=== PATIENT | male | born 1945 | race Caucasian/White ===

== ENCOUNTER 2018-07-31 20:27 | Observation (INO) ==
[2018-07-31 21:12] LABS: Basophils # 0.1 K/mcL (0.0-0.2); Basophils % 1.1 %; Eosinophils # 0.2 K/mcL (0.0-0.6); Eosinophils % 2.9 %; Hematocrit 43.2 % (37.5-50.1); Hemoglobin 14.7 g/dL (12.9-16.9); Immature Granulocytes % 0.3 % (0-4); Lymphocytes # 1.7 K/mcL (0.6-4.6); Lymphocytes % 26.9 %; Mean Corpuscular Hemoglobin 29.5 pg (28.0-33.3); Mean Corpuscular Volume 86.6 fL (83.0-100.0); Mean Platelet Volume 10.3 fL (9.4-12.4); Monocytes # 0.5 K/mcL (0.0-1.3); Monocytes % 7.7 %; Platelet Count 234 K/mcL (140-400); Red Blood Count 4.99 M/mcL (4.19-5.50); Red Cell Distribution Width 13.8 % (11.5-14.5); Segmented Neutrophils % 61.1 %
[2018-07-31 21:34] LABS: BUN/Creatinine Ratio 11 (6-26); Blood Urea Nitrogen 24 mg/dL (8-23); Calcium 9.4 mg/dL (8.6-10.3); Carbon Dioxide 25 mEq/L (23-29); Chloride 102 mEq/L (98-107); Glucose 102 mg/dL (70-105); Osmolality,Calculated 288 (280-300); Potassium 4.1 mEq/L (3.5-5.1); Sodium 137 mEq/L (136-145); eGFR For Non-African Americans 29 (> 60)
[2018-07-31 21:35] LABS: Troponin I < 0.03 ng/mL (< 0.04)
[2018-07-31 21:48] LABS: Thyroid Stimulating Hormone 2.745 mcIU/mL (0.340-5.600)
--- NOTE | 2018-07-31 22:11 | Emergency Department Note ---
Disposition Clinical Impression: Bradycardia Syncope Qualifiers: Syncope type: unspecified Qualified Code(s): R55 - Syncope and collapse Chronic kidney disease Qualifiers: Chronic kidney disease stage: unspecified stage Qualified Code(s): N18.9 - Chronic kidney disease, unspecified Disposition: Admitted As Inpatient Condition: Fair Time of Disposition: 22:15 General Adult HPI - General Chief complaint: ED Neuro Symptoms/Deficit Stated complaint: Possible TIA Time Seen by Provider: 07/31/18 20:29 Source: patient, EMS Mode of arrival: EMS Limitations: no limitations Nursing Notes Reviewed: Yes Vital Signs Reviewed: Yes - History of Present Illness HPI Narrative: 73-year-old male with significant past medical history of previous cancer requiring a nephrectomy presenting to the emergency department with a syncopal episode. According to at bedside they were at dinner this evening when he became unresponsive and limp. He vomited on himself. Patient woke up and had time of confusion [place] 5-10 minutes. They called EMS and he is brought here for further evaluation. Patient had no focal neurological deficits during this time. When EMS arrived his NIH was 0. Patient does have a history of stroke in the past but denies any anticoagulation at this time. Patient states is similar episode occurred earlier this week when he was at physical therapy. He felt his heart rate go very slow and became diaphoretic and sweaty and almost passed out. He was seen at urgent care at that time repeat EKG was completed and was discharged home. He was previously a candidate for pacemaker but denied it because he was going through cancer treatment and did not want any intervention. At this time patient is completely asymptomatic. Denies any chest pain, dizziness, headache or shortness of breath. Pain Scale: 0 - Related Data Home Medications Medication Instructions Recorded Confirmed Aspirin [Lo-Dose Aspirin EC] 81 mg PO DAILY 07/22/18 07/31/18 Atorvastatin [Lipitor] 40 mg PO DAILY 07/22/18 07/31/18 Doxazosin [Cardura] 4 mg PO DAILY 07/22/18 07/31/18 amLODIPine [Norvasc] 10 mg PO DAILY 07/22/18 07/31/18 hydroCHLOROthiazide 12.5 mg PO DAILY 07/22/18 07/31/18 [Hydrochlorothiazide] Allergies Allergy/AdvReac Type Severity Reaction Status Date / Time No Known Allergies Allergy Verified 07/22/18 10:00 All systems ED: reviewed and negative except as stated. Constitutional: Denies: fever Eyes: Reports: as per HPI ENT ED: Reports: as per HPI Cardiovascular: Denies: chest pain Respiratory: Denies: dyspnea Gastrointestinal: Reports: vomiting. Denies: abdominal pain Genitourinary: Reports: as per HPI Musculoskeletal: Reports: as per HPI Integumentary: Reports: as per HPI Neurological: Reports: other (Syncope) Psychiatric: Reports: as per HPI Endocrine: Reports: as per HPI Hematological/Lymphatic: Reports: as per HPI Allergic/Immunologic: Reports: as per HPI Past Medical History - Past Medical History Attestation: Yes The following information was validated with the patient. Medical history: Reports: cancer, CVA, hypertension, other Psychiatric history: Reports: no psych history - Social History Smoking Status: Never smoker Smokeless Tobacco Status: No Alcohol use: Reports: none Drug use: Reports: none Physical Exam - General Limitations: no limitations General appearance: alert, in no apparent distress - Head Head exam: atraumatic, normocephalic, normal inspection - Eye Eye exam: Present: EOMI. Absent: scleral icterus, conjunctival injection - ENT ENT exam: mucous membranes moist - Neck Neck exam: Present: full ROM - Chest Chest inspection: Present: symmetric chest wall rise - Respiratory Respiratory exam: Present: normal lung sounds bilaterally. Absent: respiratory distress, wheezes - Cardiovascular Cardiovascular exam: Present: normal rhythm, bradycardia, normal heart sounds - Abdominal Exam Abdominal exam: Present: soft, Non-Tender. Absent: distention, guarding, rebound - Extremities Exam Extremities exam: Present: full ROM - Neurological Exam Neurological exam: Present: alert, oriented X3 - Skin Skin exam: Present: warm, dry Course Course Narrative: 73-year-old male presenting for a syncopal episode. Patient was sitting when it occurred. Concern for possible bradycardia leading to syncope. In the room he is alert and oriented 3 and hemodynamically stable. Asymptomatic at this time. Concern for bradycardia leading to syncope or possible other arrhythmia especially due to patient having symptoms earlier this week. At this time will obtain basic laboratory analysis along with an EKG and chest x-ray. Disposition most likely admission due to patient's repeat symptoms. Patient agrees with this plan. - Reevaluation(s) Reevaluation #1: Patient's laboratory analysis shows mild worsening creatinine. Otherwise benign. EKG does not show any acute process. At this time will plan to admit the patient for further evaluation and cardiac monitoring. He remains alert and oriented 3 and hemodynamically stable. Patient agrees this plan. I spoke with the hospitalist on-call who agrees to accept the patient at this time. Vital Signs Temperature 97.6 F 07/31/18 20:34 Pulse Rate 53 07/31/18 20:34 Respiratory Rate 15 07/31/18 20:34 Blood Pressure 133/87 07/31/18 20:34 O2 Sat by Pulse Oximetry 97 07/31/18 20:34 Temperature 97.6 F 07/31/18 20:34 Pulse Rate 53 07/31/18 20:34 Respiratory Rate 15 07/31/18 20:34 Blood Pressure 133/87 07/31/18 20:34 O2 Sat by Pulse Oximetry 97 07/31/18 20:34 Oxygen Delivery Oxygen Delivery Room Air Medical Decision Making - Lab Data Result diagrams: 07/31/18 20:54 07/31/18 20:54 Lab Results 07/31/18 07/31/18 Range/Units 20:54 20:54 WBC 6.5 (4.3-11.1) K/mcL RBC 4.99 (4.19-5.50) M/mcL Hgb 14.7 (12.9-16.9) g/dL Hct 43.2 (37.5-50.1) % MCV 86.6 (83.0-100.0) fL MCH 29.5 (28.0-33.3) pg MCHC 34.0 (31.6-35.5) g/dL RDW 13.8 (11.5-14.5) % Plt Count 234 (140-400) K/mcL MPV 10.3 (9.4-12.4) fL Immature Gran % 0.3 (0-4) % Seg Neutrophils % 61.1 % Lymphocytes % 26.9 % Monocytes % 7.7 % Eosinophils % 2.9 % Basophils % 1.1 % Neutrophils # 4.0 (1.6-8.9) K/mcL Lymphocytes # 1.7 (0.6-4.6) K/mcL Monocytes # 0.5 (0.0-1.3) K/mcL Eosinophils # 0.2 (0.0-0.6) K/mcL Basophils # 0.1 (0.0-0.2) K/mcL Sodium 137 (136-145) mEq/L Potassium 4.1 (3.5-5.1) mEq/L Chloride 102 (98-107) mEq/L Carbon Dioxide 25 (23-29) mEq/L BUN 24 H (8-23) mg/dL Creatinine 2.22 H (0.70-1.30) mg/dL Est GFR ( Amer) 36 L (> 60) Est GFR (Non-Af Amer) 29 L (> 60) BUN/Creatinine Ratio 11 (6-26) Glucose 102 (70-105) mg/dL Calculated Osmolality 288 (280-300) Calcium 9.4 (8.6-10.3) mg/dL Troponin I < 0.03 (< 0.04) ng/mL TSH 2.745 (0.340-5.600) mcIU/mL - EKG Data EKG #1 EKG attestation: Yes I reviewed and interpreted this EKG. EKG results narrative: Sinus rhythm. 50 beats for minute. OK interval 167, QRS 102, QTC 385. Left axis deviation. No sign of acute ST segment elevation or ischemia. Compared to previous EKG completed on 07/22/2018 no significant changes noted Attestation Statement - Attestation Attestation: I, Barney Smith, examined this patient and my medical decision-making was reviewed with the [employer] SALESPERSON/PA/Advanced Practice Nurse/Resident Physician. I agree with the documented findings, disposition and treatment plan as described except to the extent set forth below. 73-year-old male presents emergency Department after having episode of decreased responsiveness. Patient was sitting at a restaurant talking with friends, had not yet eaten dinner when he suddenly started to stare off into space, became pale and diaphoretic and had drooping of the right side of his face. Patient has a history of previous CVA. No history of seizures. He should not had a postictal period per the family was present in the room during the interview. He was not incontinent of urine or stool. Did not bite his tongue. There is no observed convulsions. Patient did not fall to the ground or become completely unconscious. Patient states that this is occurred to him in the past. Patient is bradycardic during the evaluation. He has been evaluated for possible pacemaker in the past has refused it. His possible patient's symptoms may have been secondary to a [place] bradycardia could have been due to vasovagal syndrome, and also could have been due to seizure given his recent CVA. Patient denies headache, recent trauma. He had a head CT within the past 2 months that did not show evidence of obvious mass. Unlikely subarachnoid hemorrhage without having headache or focal neurologic deficits in emergency department. Patient will be admitted to the hospital for further care and evaluation.
[2018-08-01] MEDS ORDERED: 0.9 % Sodium Chloride 500 ML IVC SCH (01:30)
[2018-08-01] MEDS ORDERED: Naloxone 0.4 MG/ML INJ IVP PRN (01:31)
--- NOTE | 2018-08-01 01:49 | Internal Med History&Physical ---
<Dave Serrano R - Last Filed: 08/01/18 04:14> Date of Encounter: 08/01/18 Time of Encounter: 02:04 Internal Medicine - H&P: HPI Chief complaint: Syncope Admitted From: Emergency Dept Plans for Post Hospital Care: Home History of present illness: Mr. Johnson is a 73 year old male with a history of CK D, bladder cancer in remission, bradycardia, and recent CVA in 05/2018 with some mild residual right-sided weakness. Patient presenting for evaluation of recurrent episodes of presyncope and syncope. Most recently occurred yesterday evening while seated down for dinner. Prior to eating patient states that he felt presyncopal with symptoms including diaphoresis, dizziness, nausea. He has poor memory of what happened after that. He does state he did not bite his tongue and he did not lose urinary or bowel continence. He is unsure if he completely lost consciousness, however states he did not follow for the remaining seated. He believes that this episode lasted just a couple minutes. He reports that this has happened last week while working with physical therapy, where he became diaphoretic, dizzy, nauseous. He admits to a history of bradycardia which was evaluated in approximately 2009. He electively decided not to have a pacemaker implanted. Evaluation in the emergency department revealed vital signs within normal limits, CBC within normal limits, elevated serum creatinine of 2.2, appears his baseline is somewhere between 2.0 2.1. Chest x-ray negative for acute abnormality. And no new focal neurologic deficits were identified At the time of my evaluation patient is resting comfortably in his room. No family is present, patient can provide only a limited account of history of present illness. He has no other acute complaints at this time. Past Med Surg Social Fam HX - Past Medical History Medical history: cancer, CVA, hypertension, other Additional medical history: RENAL CA-NEPHRECTOMY Psychiatric history: no psych history - Social History Smoking Status: Never smoker Smokeless Tobacco Status: No Alcohol use: none Drug use: none - Family History Mother Living Status: Age at : 84 Hx Family Cardiac Disorders: Yes (CHF) Father Living Status: Age at : 92 Hx Family Respiratory Disorders: Yes (black lung) Hx Family Cancer: Yes (bone) Internal Medicine - H&P: Meds Aspirin [Lo-Dose Aspirin EC] 81 mg PO DAILY 07/22/18 [History] Atorvastatin [Lipitor] 40 mg PO DAILY 07/22/18 [History] Doxazosin [Cardura] 4 mg PO DAILY 07/22/18 [History] amLODIPine [Norvasc] 10 mg PO DAILY 07/22/18 [History] hydroCHLOROthiazide [Hydrochlorothiazide] 12.5 mg PO DAILY 07/22/18 [History] Allergy/AdvReac Type Severity Reaction Status Date / Time No Known Allergies Allergy Verified 07/22/18 10:00 All Systems PM: A 10-system review of systems was performed and is negative for pertinent findings except as documented above in the HPI. - Constitutional Constitutional: no chills, no fever(s) - EENT Eyes: no blurry vision, no diplopia Nose, mouth and throat: no dysphagia, no epistaxis, no mouth pain, no neck pain - Cardiovascular Cardiovascular ROS IM: diaphoresis, lightheadedness, syncope, no chest pain, no dyspnea on exertion, no edema, no palpitations - Respiratory Respiratory: no cough, no wheezing, no chest congestion - Gastrointestinal Gastrointestinal: no abdominal pain, no change in bowel habits, no dysphagia, no hematemesis, no hematochezia, no melena, no nausea, no vomiting - Genitourinary Genitourinary ROS male: no dysuria, no flank pain, no hematuria - Musculoskeletal Musculoskeletal ROS IM: muscle weakness, no arthralgias, no numbness, no tingling - Integumentary Integumentary IM: no erythema, no rash - Neurological Neurological ROS: abnormal movements, dizziness, weakness, no confusion, no convulsions, no numbness, no tingling - Psychiatric Psychiatric: no anxiety, no confusion, no depression - Hematologic/Lymphatic Hematologic/Lymphatic: no easy bleeding, no easy bruising - Constitutional Vitals: Temp Pulse Resp BP Pulse Ox 97.6 F 55 18 148/82 96 08/01/18 00:26 08/01/18 00:26 08/01/18 00:26 08/01/18 00:26 08/01/18 00:26 Exam: General: Patient is resting quietly in his room, easily arousable, no apparent distress HEENT: Atraumatic, pupils PERRLA with EOMI, moist mucous membranes, anicteric sclera Neck: Soft, full range of motion Cardiovascular: Bradycardic in the mid 50s, regular rate and rhythm, no murmurs to auscultation Respiratory: Clear to auscultation bilateral lung [place], no crackles, wheezing, or rhonchi noted Abdomen: Soft, nontender, nondistended, no guarding or rigidity Extremities: Warm and dry, no swelling or edema Neuro: Alert and oriented to person, place, and situation. Good fund of knowledge. Language is fluent without significant word finding or dysphagia. Very subtle right upper extremity weakness compared to left, and 4/5 strength of the right lower extremity compared to 5/5 of the left lower extremity, residual from prior CVA. No difficulty with rapid alternating movement. However patient does demonstrate difficulty with right-sided finger to nose testing. Patient does require walker for ambulation, gait was not witnessed during this evaluation. Psych: Conversant and pleasant, appropriate mood and affect Internal Med - H&P Results - Labs CBC & Chem 7: 07/31/18 20:54 07/31/18 20:54 Labs: Short CBC 07/31/18 Range/Units 20:54 WBC 6.5 (4.3-11.1) K/mcL Hgb 14.7 (12.9-16.9) g/dL Hct 43.2 (37.5-50.1) % Plt Count 234 (140-400) K/mcL Neutrophils # 4.0 (1.6-8.9) K/mcL BMP 07/31/18 20:54 Sodium 137 Potassium 4.1 Chloride 102 Carbon Dioxide 25 BUN 24 H Creatinine 2.22 H Glucose 102 Calcium 9.4 Cardiac Enzymes 07/31/18 Range/Units 20:54 Troponin I < 0.03 (< 0.04) ng/mL - Impressions ITS Impressions Chest X-Ray 07/31/18 20:43 IMPRESSION: No acute finding in the chest. D/ / Narciso Whitfield MD / Narciso Whitfield MD Interpreting Provider: Narciso Whitfield MD - Assessment and plan (1) Syncope Current Visit: Yes Status: Acute Assessment and plan: Witnessed syncope and presyncopal events Etiology bradycardia versus orthostatic hypotension versus neurologic History of bradycardia, and was offered pacemaker in the past however patient declined History of CVA in 05/2018, current episodes do not appear neurologic in origin It appears the patient's dose of doxazosin was recently increased from 2 mg to 4 mg daily, and it appears that this medication was filled on 07/21/2018 which would be consistent with symptom onset. Plan: Will admit for observation with cardiac monitoring We will obtain ultrasound evaluation of carotids as well as echocardiogram Cardiology consultation for re-evaluation of bradycardia We will hold home blood pressure medications for the time being as well as doxazosin Low suspicion for neurologic etiology, however pending patient clinical course consider neurologic evaluation with brain MRI. Qualifiers: Syncope type: unspecified Qualified Code(s): R55 - Syncope and collapse (2) Bradycardia Current Visit: Yes Status: Acute Assessment and plan: History of bradycardia, and was offered pacemaker implantation in the past, however patient previously refused Patient has been bradycardic this admission with heart rate in the mid 50s. Plan: Admit for cardiac observation Continue plan as outlined above Cardiology consultation for reevaluation of bradycardia (3) Chronic kidney disease Current Visit: Yes Status: Acute Assessment and plan: Chronic kidney disease Mild increase in serum creatinine from prior Avoid nephrotoxic agents as possible We will give conservative maintenance rate fluids tonight Qualifiers: Chronic kidney disease stage: unspecified stage Qualified Code(s): N18.9 - Chronic kidney disease, unspecified (4) Bladder cancer Current Visit: No Status: Acute Assessment and plan: History of metastatic bladder cancer per patient was treated with chemotherapy/radiation in approximately 2009 Patient states that he has been cancer free in remission since that time. Patient did receive neuroimaging in May 2018 as part of stroke workup. Per patient these evaluations did not reveal recurrent metastatic disease. Continue routine follow-up with outpatient oncology as indicated Qualifiers: Bladder location: unspecified site Qualified Code(s): C67.9 - Malignant neoplasm of bladder, unspecified - Time Spent With Patient Total time spent is greater than 50% in coordination of care (as documented) at patient's floor/unit and/or counseling patient: <OliviageriBea Vargas - Last Filed: 08/01/18 07:30> Date of Encounter: 08/01/18 Internal Medicine - H&P: HPI History of present illness: Mr. Johnson is a 73 year old male All Systems PM: A 10-system review of systems was performed and is negative for pertinent findings except as documented above in the HPI. - Constitutional Vitals: Temp Pulse Resp BP Pulse Ox 97.8 F 52 14 138/74 95 08/01/18 06:59 08/01/18 06:59 08/01/18 06:59 08/01/18 06:59 08/01/18 06:59 Internal Med - H&P Results - Labs CBC & Chem 7: 07/31/18 20:54 07/31/18 20:54 Labs: Short CBC 07/31/18 Range/Units 20:54 WBC 6.5 (4.3-11.1) K/mcL Hgb 14.7 (12.9-16.9) g/dL Hct 43.2 (37.5-50.1) % Plt Count 234 (140-400) K/mcL Neutrophils # 4.0 (1.6-8.9) K/mcL BMP 07/31/18 20:54 Sodium 137 Potassium 4.1 Chloride 102 Carbon Dioxide 25 BUN 24 H Creatinine 2.22 H Glucose 102 Calcium 9.4 Cardiac Enzymes 07/31/18 Range/Units 20:54 Troponin I < 0.03 (< 0.04) ng/mL Urine 08/01/18 Range/Units 05:20 Urine Color Yellow (Yellow) Urine Clarity Clear (Clear) Urine pH 7.5 (5.0-8.0) pH Units Ur Specific [place] < 1.005 L (1.010-1.025) Urine Protein Negative (Neg-Trace) mg/dL Urine Glucose (UA) Normal (Normal) mg/dL - Impressions ITS Impressions Chest X-Ray 07/31/18 20:43 IMPRESSION: No acute finding in the chest. D/ / Narciso Whitfield MD / Narciso Whitfield MD Interpreting Provider: Narciso Whitfield MD - Assessment and plan (1) Bladder cancer Current Visit: No Status: Acute Qualifiers: Bladder location: unspecified site Qualified Code(s): C67.9 - Malignant neoplasm of bladder, unspecified (2) Syncope Current Visit: Yes Status: Acute Qualifiers: Syncope type: unspecified Qualified Code(s): R55 - Syncope and collapse (3) Bradycardia Current Visit: Yes Status: Acute (4) Chronic kidney disease Current Visit: Yes Status: Acute Qualifiers: Chronic kidney disease stage: unspecified stage Qualified Code(s): N18.9 - Chronic kidney disease, unspecified - Time Spent With Patient Total time spent is greater than 50% in coordination of care (as documented) at patient's floor/unit and/or counseling patient: - Attending Attestation I performed a history and physical examination of the patient and discussed his management with the resident. I reviewed the resident's note and agree with the assessment and plan of care. Patient is a 73-year-old male with a past medical history of bladder cancer in remission, bradycardia and CVA in May 2018 with mild right-sided residual weakness who presented to the ED after a syncopal episode witnessed by his family members while patient was seated at dinner. Symptoms were preceded by flushing, warmth and nausea. Patient unsure if he lost consciousness or not. No reports of tonic-clonic activity, tongue biting or loss of bowel or bladder control. No evidence of focal neurological deficits or change from patient's baseline. Patient has had these episodes of recurrent syncope in the past, the previous one occurring during physical rehabilitation in June with similar presentation and return to baseline. Patient also reports a syncopal episode as a teenager. Patient was evaluated for possible pacemaker placement many years ago while he was undergoing chemotherapy, but opted to hold off at the time. Low suspicion for TIA. On arrival patient was found to be in sinus bradycardia in the 40s to 50s. Troponin negative. Of note, Patient does report an increase in his doxazosin from 2-4 mg. We will continue patient on telemetry. Hold AV jessica blocking agents. Hold doxazosin for now. Obtain echocardiogram and cardiology consult appreciated.
[2018-08-01 05:31] LABS: Bilirubin,Urine Negative (Negative); Blood,Urine Negative (Negative); Clarity,Urine Clear (Clear); Color,Urine Yellow (Yellow); Glucose,Urine (UA) Normal (Normal); Ketones,Urine Negative (Negative); Leukocyte Esterase,Urine Negative (Negative); Nitrite,Urine Negative (Negative); PH,Urine 7.5 pH Units (5.0-8.0); Protein,Urine Negative (Neg-Trace); Specific Gravity,Urine < 1.005 (1.010-1.025); Urobilinogen,Urine Normal (Normal)
[2018-08-01 07:38] LABS: Estimated Average Glucose 111 mg/dl; Hemoglobin A1C 5.5 %
[2018-08-01 07:42] LABS: Albumin 3.9 g/dL (3.5-5.7); Albumin/Globulin Ratio 1.8 (1.1-2.2); Bilirubin,Total 1.5 mg/dL (0.3-1.0); Calcium 9.1 mg/dL (8.6-10.3); Globulin 2.2 g/dL (2.4-3.5); Total Protein 6.1 g/dL (6.4-8.9)
[2018-08-01] MEDS: Aspirin Enteric Coated 81 MG Tablet PO SCH (09:07)
--- NOTE | 2018-08-01 12:45 | Cardiology Consult Note ---
Date of Encounter: 08/01/18 Time of Encounter: 11:45 Assessment and Plan (1) Syncope Current Visit: Yes Status: Acute Per cardiology: -Admitted with syncopal event at home. -Denies loss of bowel or bladder. -No recent cardiac work up. -TTE/Carotid pending. -ECG with SB, HR 50. -Average HR previous 12 hours 54. No significant pauses, events noted on tele. -Denies current symptoms. -Agree with TTE. -Continue telemetry. -Will continue to monitor. Qualifiers: Syncope type: unspecified Qualified Code(s): R55 - Syncope and collapse (2) Bradycardia Current Visit: Yes Status: Chronic Per cardiology: -Known bradycardia. -Avoid AV jessica blockers. -Continue tele -Will continue to monitor. Discussion w patient/family: The assessment and plan as outlined above was discussed with the patient who expressed understanding and agreement. All questions were answered. Thank you for involving us in the care of your patient. Please call with any questions. Discussed and reviewed with . History of Present Illness Consult date: 08/01/18 Requesting physician: Dave Serrano Consult reason: syncope Chief complaint: syncope History of present illness: Mr. Johnson is a 73 year old male with a relevant past medical history of HTN, bradycardia, syncope, bladder cancer, CVA, who presented to [facility] with complaints of syncope. Patient states he was eating at the kitchen table when he felt dizzy, warm all over, and felt like his vision was getting dark. Patient states that is when he lost consciousness. Denies loss of bowel or bladder. Reports had similar episodes in 2009. Denies current symptoms. Past Med Surg Social Fam HX - Past Medical History Attestation: Yes The following information was validated with the patient. Source: patient, old records reviewed Medical history: cancer, CVA, hypertension, other Additional medical history: RENAL CA-NEPHRECTOMY Psychiatric history: no psych history - Past Surgical History Surgical History: other Additional surgical history: nephrectomy - Social History Smoking Status: Never smoker Smokeless Tobacco Status: No Alcohol use: none Drug use: none - Family History Mother Living Status: Age at : 84 Hx Family Cardiac Disorders: Yes (CHF) Father Living Status: Age at : 92 Hx Family Respiratory Disorders: Yes (black lung) Hx Family Cancer: Yes (bone) Medications and Allergies Aspirin [Lo-Dose Aspirin EC] 81 mg PO DAILY 07/22/18 [History] Atorvastatin [Lipitor] 40 mg PO DAILY 07/22/18 [History] Doxazosin [Cardura] 4 mg PO DAILY 07/22/18 [History] amLODIPine [Norvasc] 10 mg PO DAILY 07/22/18 [History] hydroCHLOROthiazide [Hydrochlorothiazide] 12.5 mg PO DAILY 07/22/18 [History] Allergy/AdvReac Type Severity Reaction Status Date / Time No Known Allergies Allergy Verified 07/22/18 10:00 All Systems Review: The remainder of the systems were reviewed and are negative - Cardiovascular Cardiovascular: as per HPI, lightheadedness, syncope Physical Examination Vital Signs, Last 4 Hours Temp Pulse Pulse Pulse Pulse Resp BP 08/01/18 12:33 50 59 68 08/01/18 10:53 97.7 F 48 14 131/76 BP BP BP Pulse Ox 08/01/18 12:33 133/77 145/77 141/82 08/01/18 10:53 96 General: Conversant, No Apparent Distress HEENT: Atraumatic, Normocephaly, Mucus Membranes Moist Neck: No JVD, Normal carotid pulses Cardiac: Reg Rate and Rhythm, Normal S1 and S2, No Murmur Lungs: Normal Breath Sounds, No Wheeze, Rales, Rhonchi Neuro: Alert and responsive, No focal deficits noted Abdomen: Soft, Non-Tender Skin: No rashes noted on visualized skin Musculoskeletal: No Chest Wall Tenderness Extremities: No Clubbing, No Cyanosis, No Edema, Normal Pulses Results 07/31/18 20:54 08/01/18 07:12 Lab Results Impressions Chest X-Ray 07/31/18 20:43 IMPRESSION: No acute finding in the chest. D/ / Narciso Whitfield MD / Narciso Whitfield MD Interpreting Provider: Narciso Whitfield MD Active Medications Amlodipine Besylate (Norvasc) 10 mg PO DAILY [facility]; Protocol Stop: 02/01/19 09:01 Aspirin (Aspirin Ec) 81 mg PO DAILY [facility] Stop: 01/31/19 09:01 Last Admin: 08/01/18 09:07 Dose: 81 mg Atorvastatin Calcium (Lipitor) 40 mg PO DAILY [facility] Stop: 01/31/19 09:01 Last Admin: 08/01/18 09:07 Dose: 40 mg Doxazosin Mesylate (Cardura) 2 mg PO BID [facility] Stop: 01/31/19 21:01 Naloxone HCl (Narcan) 0.4 mg IVP Q2MIN PRN PRN Reason: SEE COMMENTS Stop: 01/31/19 01:32 Non-Formulary Medication (Hydrochlorothiazide [Hydrochlorothiazide]) 12.5 mg PO DAILY [facility] Stop: 02/01/19 09:01 Laboratory Tests 07/31/18 07/31/18 08/01/18 20:54 20:54 07:12 Hgb 14.7 Potassium 4.0 Creatinine 2.22 H 2.13 H Troponin I < 0.03 TSH 2.745 - Imaging and Cardiology Chest Xray: report reviewed Echo: pending - EKG Interpretation EKG results cardiology: personally reviewed (ECG with SB, HR 50. PAC noted.), other (Telemetry reviewed with average HR previous 12 hours noted to be 54, SB. Minimum HR 45 at 0700. PVCs and PACs noted.) Consult Discharge Plan - Plan [facility]: [facility] [Primary Care Provider] -
[2018-08-02] MEDS ORDERED: amLODIPine 5 MG TABLET PO SCH (09:00)
[2018-08-02] MEDS ORDERED: hydroCHLOROthiazide 25 MG TABLET PO SCH (09:00)
[2018-08-02] MEDS: Aspirin Enteric Coated 81 MG Tablet PO SCH (09:47)
[2018-08-02 12:20] VITALS: BP 133/77
--- NOTE | 2018-08-02 12:26 | Cardiology Progress Note ---
Date of Encounter: 08/02/18 Time of Encounter: 10:00 Assessment and Plan (1) Syncope Current Visit: Yes Status: Acute Per cardiology: -Admitted with syncopal event at home. -Denies loss of bowel or bladder. -No recent cardiac work up. -TTE with LVEF preserved, mild diastolic dysfunction, no wall motion abnormalities noted. -Carotid with non-stenotic plaque. -ECG with SB, HR 50. -Average HR previous 12 hours 50. No significant pauses, events noted on tele. -Denies current symptoms. States able to walk around room without dizziness, lightheadedness. -Syncope, possibly vasovagal. Encouraged to stay well hydrated. -Discussed and reviewed with , recommend 4 week event monitor placed prior to discharge. -Cardiology will sign off and will arrange close oupatient follow up. Qualifiers: Syncope type: unspecified Qualified Code(s): R55 - Syncope and collapse (2) Bradycardia Current Visit: Yes Status: Chronic Per cardiology: -Known bradycardia. -Avoid AV jessica blockers. Discussion w patient/family: The assessment and plan as outlined above was discussed with the patient who expressed understanding and agreement. All questions were answered. Thank you for involving us in the care of your patient. Please call with any questions. Discussed and reviewed with . Subjective Principal diagnosis: syncope Interval history: Patient denies current symptoms. States he has been up walking without dizz iness, lightheadedness. Objective Vital Signs, Last 4 Hours Temp Pulse Resp BP Pulse Ox 08/02/18 12:19 98.0 F 50 17 133/77 94 General: Conversant, No Apparent Distress HEENT: Atraumatic, Normocephaly, Mucus Membranes Moist Neck: No JVD, Normal carotid pulses Cardiac: Reg Rate and Rhythm, Normal S1 and S2, No Murmur Lungs: Normal Breath Sounds, No Wheeze, Rales, Rhonchi Neuro: Alert and responsive, No focal deficits noted Abdomen: Soft, Non-Tender Skin: No rashes noted on visualized skin Musculoskeletal: No Chest Wall Tenderness Extremities: No Clubbing, No Cyanosis, No Edema, Normal Pulses Results 07/31/18 20:54 08/01/18 07:12 Impressions Echocardiogram 08/01/18 01:30 Impressions: LVEF 60-65%. Normal LV chamber size, wall thickness and function. Mild left ventricular diastolic dysfunction. Normal right ventricular structure and function. No evidence of pulmonary hypertension. No significant valvular dysfunction. Left Ventricular Wall Motion: Rest Echo Findings All wall segments showed normal motion. Findings: Study Quality * Technically adequate exam. ECG Findings * Sinus bradycardia. HR 40s. Left Ventricle * LVEF 60-65%. * Normal LV chamber size, wall thickness and function. * Mild left ventricular diastolic dysfunction. Right Ventricle * Normal right ventricular structure and function. Left Atrium * Mildly dilated left atrium. Right Atrium * Normal right atrial size. Aortic Valve * Trileaflet aortic valve with normal function. * No aortic regurgitation. * No aortic stenosis. Mitral Valve * Normal mitral valve structure and function. * No mitral stenosis. * Trace mitral regurgitation. Tricuspid Valve * Normal tricuspid valve structure and function. * Trace tricuspid regurgitation. * No evidence of pulmonary hypertension. Pulmonic Valve * Pulmonic valve not well visualized. Aorta * Normally sized aortic root. Pericardium * The pericardium appears normal. IVC * Normal IVC dimensions and inspiratory collapse. Pulmonary Artery * Normal visualized portions of the main pulmonary artery. Active Medications Amlodipine Besylate (Norvasc) 10 mg PO DAILY [facility]; Protocol Stop: 02/01/19 09:01 Last Admin: 08/02/18 09:46 Dose: 10 mg Aspirin (Aspirin Ec) 81 mg PO DAILY [facility] Stop: 01/31/19 09:01 Last Admin: 08/02/18 09:47 Dose: 81 mg Atorvastatin Calcium (Lipitor) 40 mg PO DAILY [facility] Stop: 01/31/19 09:01 Last Admin: 08/02/18 09:46 Dose: 40 mg Doxazosin Mesylate (Cardura) 2 mg PO BID [facility] Stop: 01/31/19 21:01 Last Admin: 08/02/18 09:46 Dose: 2 mg Hydrochlorothiazide (Hydrochlorothiazide) 12.5 mg PO DAILY [facility] Stop: 02/01/19 09:01 Last Admin: 08/02/18 09:47 Dose: 12.5 mg Naloxone HCl (Narcan) 0.4 mg IVP Q2MIN PRN PRN Reason: SEE COMMENTS Stop: 01/31/19 01:32 Laboratory Tests 07/31/18 08/01/18 20:54 07:12 Potassium 4.0 Creatinine 2.13 H Troponin I < 0.03 TSH 2.745 - Imaging and Cardiology Chest Xray: report reviewed Echo: report reviewed - EKG Interpretation EKG results cardiology: other (Telemetry reviewed with average HR previous 12 hours noted to be 50, SB. PVCs and PACs noted. Minimum HR, 45 @ 0600. Short run of atrial tachycardia.) Consult Discharge Plan - Plan [facility]errals: [facility] [Primary Care Provider] -
--- NOTE | 2018-08-02 15:45 | Discharge Summary ---
Date of Encounter: 08/02/18 Time of Encounter: 15:43 - Discharge Diagnosis (1) Syncope Priority: Primary Status: Acute Qualifiers: Syncope type: unspecified Qualified Code(s): R55 - Syncope and collapse (2) Bradycardia Priority: Primary Status: Chronic (3) Hypertensive renal disease with renal failure Priority: Secondary Status: Chronic (4) Hx of malignant neoplasm of kidney Priority: Secondary Status: Resolved Hospital course: HOSPITAL COURSE: The patient is a 73-year-old male. 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 He was admitted to the hospital after he had experienced a syncopal episode, when sitting. He had a similar one several days before. He was diagnosed with significant bradycardia a few years agorefused to get a pacer. We did not find him to have any significant cardiac arrhythmia. Cardiology was consulted. They recommended Holter monitor for the next 4 weeks. It was started before the patients discharge. CONDITION AT DISCHARGE: He feels good. Denies chest pain and difficulty breathing. He has no problems with ambulation; not having any particular symptoms. Skin: Free of rash and discoloration. Respiratory: Normal breath sounds with no crackles and wheezes bilaterally. CV: Heart is regular with no gallop or murmur. GI: Abdomen is flat and soft with no palpable mass or visceromegaly. Neuro exam: There is no focal deficits. Normal speech, swallowing and gait. SEE DISCHARGE ORDERS/MEDICATIONS Discharge discussed with: patient, family, case management - Time Spent with Patient Total time spent providing and/or coordinating discharge services: Greater than 30 minutes (35 minutes...) - Discharge Medications Home Medications: Aspirin [Lo-Dose Aspirin EC] 81 mg PO DAILY 07/22/18 [History] Atorvastatin [Lipitor] 40 mg PO DAILY 07/22/18 [History] amLODIPine [Norvasc] 10 mg PO DAILY 07/22/18 [History] hydroCHLOROthiazide [Hydrochlorothiazide] 12.5 mg PO DAILY 07/22/18 [History] Doxazosin [Cardura] 2 mg PO BID #0 08/02/18 [Rx] Allergies/Adverse Reactions: Allergy/AdvReac Type Severity Reaction Status Date / Time No Known Allergies Allergy Verified 07/22/18 10:00 Date of admission: 07/31/18 22:03 [facility] care physician: [facility] Consults: 08/01/18 04:22 Consult to Cardiology [CONS] Routine Comment: Consulting Provider: Cardiology [place] Reason for Consult: Bradycardia, presyncope/syncope, patient was previously recommended pacemaker for symptomatic bradycardia Call Completed: No Discharging clinician: Sarkis Mckeon Anticipated date of discharge: 08/02/18 - Constitutional Vitals: Temp Pulse Resp BP Pulse Ox 98.0 F 50 17 133/77 94 08/02/18 12:19 08/02/18 12:19 08/02/18 12:19 08/02/18 12:19 08/02/18 12:19 General appearance: Present: A&O X 3, no acute distress, answers questions appropriately Exam: xx - Patient Status Disposition: Home, Self-Care Condition: Fair Functional capacity at discharge: independent ambulation Overall status at discharge: patient is progressing back to baseline - Discharge Instructions Instructions: Holter Monitoring (GEN), Syncope (GEN), Telemetry Monitoring (GEN), Bradycardia (GEN) Follow Up With: [facility] [Primary Care Provider] - Forms: ED Satisfaction Letter Additional Instructions: NO DRIVING AND OPERATING MACHINARY - HAS TO BE CLEARED BY CARDIOLOGY... - Diet and Activity Activity: increase activity as tolerated Diet: low fat, low cholesterol - VTE Reasons for not Prescribing Prophylaxis: Treatment not Indicated - Low risk for VTE Deep Vein Thrombosis/Pulmonary Embolism Present on Admission: No
--- NOTE | 2018-08-03 23:06 | Electrocardiograph Report ---
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
== END 2018-08-02 17:30 | disposition home or self-care (01) ==
LOC: EMEROOARM 20:27 → 3NENU 20:27 → SUATTDRO 22:03 → 3NENU 23:47
PROVIDERS: ADMIT Internal Medicine; ATTEND Internal Medicine